=== PATIENT | male | born 1960 | race Caucasian/White ===

== ENCOUNTER 2020-04-30 08:52 | Emergency (ER) | payer MEDICAID, SELFPAY ==
[2020-04-30] VITALS (8 sets, daily range): BP systolic 112–142; BP diastolic 73–99; PULSE 66–86; RESP 10–30; TEMP 36.4; O2SAT 97–99; BMI 25.1
--- NOTE | 2020-04-30 09:06 | DI.US.S_ITS ---
PROCEDURE: US PERIPH VENOUS LOW EXTREM LT INDICATIONS: swelling redness TECHNIQUE: Real-time imaging, as well as color and pulse Doppler interrogation, were performed of the lower extremity deep veins from the inguinal ligament to the popliteal fossa. COMPARISON: None. FINDINGS: The common femoral, femoral and popliteal veins are normally compressible, and free of intraluminal thrombus. Color and pulse Doppler demonstrate normal phasic intraluminal flow. There is normal augmentation response to distal compression maneuver. IMPRESSION: No evidence of DVT in visualized left lower extremity veins. Dictated by: Maurisio Haney M.D. on 04/30/2020 at 9:46 Approved by: Maurisio Haney M.D. on 04/30/2020 at 9:46
--- NOTE | 2020-04-30 09:18 | ED.SKABFB ---
HPI - Skin/Abscess/Foreign Bdy General Chief complaint: Extremity Problem,Nontraumatic Stated complaint: suspected blood clot in leg Time Seen by Provider: 04/30/20 09:00 Source: patient Mode of arrival: Ambulatory Limitations: no limitations History of Present Illness HPI narrative: Patient is a 60-year-old male who presents with 3 days of left lower extremity redness and swelling. He has unfortunately been sitting up stairs in the hospital for the last week while his dyes of breast cancer. She this morning around 4:00 a.m. it will come to the ER for evaluation his leg. He denies any fevers chills sweats or shortness of breath. No prior history of blood clots. He says he has been wearing his boot because that seems to help make his leg and foot feel better. His other leg is swollen. He does not go to doctors and takes no medications. MD complaint: rash Onset (ago): day(s) (3) Location: LLE Severity: moderate Quality: aching Pain Consistency: constant Treatments prior to arrival: none Related Data Previous Rx's Medication Instructions Recorded cephalexin [Keflex] 500 mg PO TID #21 cap 04/30/20 sulfamethoxazole-trimethoprim 1 tab PO BID 7 Days #14 tab 04/30/20 [Bactrim DS] Allergies Allergy/AdvReac Type Severity Reaction Status Date / Time No Known Drug Allergies Allergy Verified 04/30/20 09:55 Review of Systems Review of Systems ROS Unobtainable: All systems reviewed & are unremarkable except as noted in HPI and below Constitutional Constitutional: Denies chills, Denies fever(s), Denies lethargy and Denies weakness Eyes Eyes: Denies change in vision, Denies eye discharge, Denies irritation and Denies loss of vision Cardiovascular Cardiovascular: Denies chest pain, Denies irregular heart rhythm, Denies lightheadedness, Denies palpitations, Denies dyspnea, Denies dyspnea on exertion and Denies orthopnea Respiratory Respiratory: Denies cough, Denies dyspnea, Denies dyspnea on exertion and Denies wheezing Gastrointestinal Gastrointestinal: Denies abdominal pain, Denies change in bowel habits, Denies diarrhea, Denies nausea and Denies vomiting Integumentary/Breasts Skin/Breast: Reports as per HPI, Reports erythema and Reports skin swelling Neurologic Neurologic: Denies loss of vision and Denies weakness Endocrine Endocrine: Denies palpitations Allergic/Immunologic Allergic/Immunologic: Denies wheezing Patient History Social History Smoking Status: Current every day smoker Smoking Status: Current every day smoker alcohol intake frequency: 0-2 drinks per day Substance Use Type: marijuana Exam Initial Vital Signs Initial Vital Signs: Vital Signs Pulse Rate 83 04/30/20 08:59 Blood Pressure 142/99 H 04/30/20 08:59 Pulse Oximetry 99 04/30/20 08:59 GENERAL: Alert 60-year-old male and in no acute distress. HEENT: Head atraumatic,EOMI, pupils reactive, face symmetric, moist mucous membranes CARDIOVASCULAR: Regular rate and rhythm without murmurs, rubs or gallops. RESPIRATORY: Breath sounds equal bilaterally, no wheezes rales or rhonchi. ABDOMEN: Soft, nontender. Normoactive bowel sounds all 4 quadrants. No guarding or rebound. EXTREMITIES: Normal range of motion, no clubbing or edema. Neurovascularly intact NEUROLOGICAL: Alert and oriented x4.Normal gait and speech. Cranial nerves II through XII grossly intact. SKIN: Left lower extremity is swollen and erythematous to mid lower leg. No abscess Course Orders Ordered: ED Orders 04/30/20 09:06 US periph venous low extrem lt Stat Blood Culture Stat 04/30/20 09:08 Complete Blood Count AUTO DIFF Stat Lactate (Lactic Acid) Stat Partial Thromboplastin Time Stat Procalcitonin Stat Prothrombin Time INR Stat 04/30/20 09:59 Comprehensive Metabolic Panel Stat Discontinued Medications Ceftriaxone Sodium/Dextrose (Rocephin) 1 gm in 50 mls @ 100 mls/hr IV NOW ONE Stop: 04/30/20 10:23 Last Infusion: 04/30/20 10:48 Dose: 0 mls/hr Documented by: Admin: 04/30/20 10:13 Dose: 100 mls/hr Documented by: BTONER Ketorolac Tromethamine (Ketorolac 60 Mg/2 Ml Vial) 30 mg IV NOW ONE Stop: 04/30/20 09:55 Last Admin: 04/30/20 10:13 Dose: 30 mg Documented by: BTONER Vital Signs Vital signs: Vital Signs - 8 hr 04/30/20 08:59 04/30/20 09:00 04/30/20 09:31 Temperature 97.6 F Pulse Rate 83 80 70 Pulse Rate [Left Dorsalis Pedis] Respiratory Rate 18 Blood Pressure 142/99 H 112/77 Pulse Oximetry 99 98 99 04/30/20 09:34 04/30/20 09:53 04/30/20 10:00 Temperature Pulse Rate 66 71 Pulse Rate [Left Dorsalis Pedis] 76 Respiratory Rate 10 L 26 H Blood Pressure 127/82 Pulse Oximetry 99 04/30/20 10:10 04/30/20 11:00 Temperature Pulse Rate 86 75 Pulse Rate [Left Dorsalis Pedis] Respiratory Rate 30 H 16 Blood Pressure 137/81 131/73 Pulse Oximetry 97 98 MDM - Skin/Abscess/Foreign Bdy Lab Data Attestation: I reviewed the patient's lab results. Result diagrams: 04/30/20 09:08 04/30/20 09:59 Labs: Lab Results 04/30/20 04/30/20 04/30/20 Range/Units 09:08 09:08 09:08 WBC 9.9 (4.5-11.0) X10^3/uL RBC 4.75 (4.5-5.9) X10^6/uL Hgb 15.2 (13.5-17.5) g/dL Hct 44.4 (41-53) % MCV 93.4 (80-100) fL MCH 31.9 (26-34) PG MCHC 34.2 (30-36) % RDW 13.0 (11.6-14.8) % Plt Count 185 (150-400) X10^3/uL Neut % (Auto) 68.7 (50-75) % Lymph % (Auto) 19.2 L (25-40) % Graham % (Auto) 10.1 (3-14) % Eos % (Auto) 1.1 L (2-4) % Baso % (Auto) 0.9 (0-2) % Neut # (Auto) 6800 (7871-2966) /uL Lymph # (Auto) 1900 (6381-6051) /uL Graham # (Auto) 1000 H (0-900) /uL Eos # (Auto) 100 (0-450) /uL Baso # (Auto) 100 (0-100) /uL PT 14.2 H (10.1-12.7) SECONDS INR 1.2 (0.9-1.3) APTT 35 (26.4-36.2) SECONDS Sodium (137-145) mmol/L Potassium (3.4-5.1) mmol/L Chloride (98-107) mmol/L Carbon Dioxide (22-32) mmol/L BUN (9-20) mg/dL Creatinine (0.66-1.25) mg/dL Estimated GFR (>60) mL/min BUN/Creatinine Ratio (6-22) Glucose (80-110) mg/dL Lactate (0.7-2.1) mmol/L Calcium (8.4-10.2) mg/dL Total Bilirubin (0.2-1.3) mg/dL AST (17-59) IU/L ALT (<50) IU/L Alkaline Phosphatase (38-126) U/L Total Protein (6.3-8.2) g/dL Albumin (3.5-5.0) g/dL Globulin (1.7-4.1) g/dL Albumin/Globulin Ratio (1.0-2.8) Procalcitonin < 0.05 (<0.5) ng/mL 04/30/20 04/30/20 04/30/20 Range/Units 09:08 09:08 09:59 WBC (4.5-11.0) X10^3/uL RBC (4.5-5.9) X10^6/uL Hgb (13.5-17.5) g/dL Hct (41-53) % MCV (80-100) fL MCH (26-34) PG MCHC (30-36) % RDW (11.6-14.8) % Plt Count (150-400) X10^3/uL Neut % (Auto) (50-75) % Lymph % (Auto) (25-40) % Graham % (Auto) (3-14) % Eos % (Auto) (2-4) % Baso % (Auto) (0-2) % Neut # (Auto) (0496-3477) /uL Lymph # (Auto) (6951-4629) /uL Graham # (Auto) (0-900) /uL Eos # (Auto) (0-450) /uL Baso # (Auto) (0-100) /uL PT (10.1-12.7) SECONDS INR (0.9-1.3) APTT Cancelled (26.4-36.2) SECONDS Sodium 133 L (137-145) mmol/L Potassium 4.1 (3.4-5.1) mmol/L Chloride 98 (98-107) mmol/L Carbon Dioxide 33 H (22-32) mmol/L BUN 10 (9-20) mg/dL Creatinine 0.62 L (0.66-1.25) mg/dL Estimated GFR > 60.0 (>60) mL/min BUN/Creatinine Ratio 16.1 (6-22) Glucose 115 H (80-110) mg/dL Lactate 1.5 (0.7-2.1) mmol/L Calcium 9.0 (8.4-10.2) mg/dL Total Bilirubin 0.8 (0.2-1.3) mg/dL AST 70 H (17-59) IU/L ALT 107 H (<50) IU/L Alkaline Phosphatase 104 (38-126) U/L Total Protein 8.2 (6.3-8.2) g/dL Albumin 4.1 (3.5-5.0) g/dL Globulin 4.1 (1.7-4.1) g/dL Albumin/Globulin Ratio 1.0 (1.0-2.8) Procalcitonin (<0.5) ng/mL Imaging Data US - DVT: Radiologist's Impression: PROCEDURE: US PERIPH VENOUS LOW EXTREM LT INDICATIONS: swelling redness TECHNIQUE: Real-time imaging, as well as color and pulse Doppler interrogation, were performed of the lower extremity deep veins from the inguinal ligament to the popliteal fossa. COMPARISON: None. FINDINGS: The common femoral, femoral and popliteal veins are normally compressible, and free of intraluminal thrombus. Color and pulse Doppler demonstrate normal phasic intraluminal flow. There is normal augmentation response to distal compression maneuver. IMPRESSION: No evidence of DVT in visualized left lower extremity veins. Dictated by: Maurisio Haney M.D. on 04/30/2020 at 9:46 MDM Narrative Medical decision making narrative: The patient overall does not appear septic no fever or leukocytosis however he does have significant erythema and swelling of his left lower leg. Negative for DVT, suspect probable cellulitis. At this time he is given 1 dose of Rocephin and will treat as outpatient for cellulitis. I have instructed him on when to return to the ED into monitor the redness and swelling very carefully. Discharge Plan Departure Patient Disposition: Home Clinical Impression: Cellulitis Qualifiers: Site of cellulitis: extremity Site of cellulitis of extremity: lower extremity Laterality: left Qualified Code(s): L03.116 - Cellulitis of left lower limb Instructions: DI for Cellulitis -- Adult Activity Restrictions/Additional Instructions: *You have been diagnosed with cellulitis left leg *What to do: Monitor leg it closely for any worsening swelling or redness. I anticipate the swelling and redness improves after about 2 or 3 days of antibiotic *Continue to take medications as directed Bactrim 1 tablet twice a day for 7 days Keflex 500 mg 3 times a day for 7 days Ibuprofen 600 mg every 6-8 hours if needed for [id number] pain *Follow up with your primary care provider in 2-3 days *Return to ER if you should have increasing redness, swelling, fever, pain, shortness of breath or any new, worsening or concerning symptoms Prescriptions: New sulfamethoxazole-trimethoprim [Bactrim DS] 800-160 mg tablet 1 tab PO BID 7 Days Qty: 14 RF: 0 cephalexin [Keflex] 500 mg capsule 500 mg PO TID Qty: 21 RF: 0
[2020-04-30 09:21] LABS: Add Manual Diff / Slide Review NO; Basophils Absolute Auto 100 /uL (0-100); Basophils Percent Auto 0.9 % (0-2); Eosinophils Absolute Auto 100 /uL (0-450); Eosinophils Percent Auto 1.1 % (2-4); Hematocrit 44.4 % (41-53); Hemoglobin 15.2 g/dL (13.5-17.5); Lymphocytes Absolute Auto 1900 /uL (1100-4500); Lymphocytes Percent Auto 19.2 % (25-40); Mean Corpuscular HGB Conc 34.2 % (30-36); Mean Corpuscular Hemoglobin 31.9 PG (26-34); Mean Corpuscular Volume 93.4 fL (80-100); Monocytes Absolute Auto 1000 /uL (0-900); Monocytes Percent Auto 10.1 % (3-14); Neutrophils Absolute Auto 6800 /uL (1500-7000); Neutrophils Percent Auto 68.7 % (50-75); Platelet Count 185 X10^3/uL (150-400); Red Blood Cell Count 4.75 X10^6/uL (4.5-5.9); White Blood Cell Count 9.9 X10^3/uL (4.5-11.0)
[2020-04-30 09:23] LABS: INR 1.2 (0.9-1.3); Prothrombin Time 14.2 SECONDS (10.1-12.7)
[2020-04-30 09:26] LABS: PTT Partial Thromboplastin Tim 35 SECONDS (26.4-36.2)
[2020-04-30 09:27] LABS: Lactate (Lactic Acid) 1.5 mmol/L (0.7-2.1)
[2020-04-30 09:43] LABS: Procalcitonin < 0.05 ng/mL (<0.5)
[2020-04-30] MEDS: KETOROLAC 60 MG/2 ML VIAL 30 MG IV (10:13)
[2020-04-30] MEDS: CEFTRIAXONE 1 GM/50 ML FROZ.PIGGY IV (10:13)
[2020-04-30 10:24] LABS: Alanine Aminotransferase 107 IU/L (<50); Albumin 4.1 g/dL (3.5-5.0); Alkaline Phosphatase 104 U/L (38-126); Aspartate Aminotransferase 70 IU/L (17-59); BUN Creatinine Ratio 16.1 (6-22); Bilirubin Total 0.8 mg/dL (0.2-1.3); Blood Urea Nitrogen 10 mg/dL (9-20); Carbon Dioxide 33 mmol/L (22-32); Chloride 98 mmol/L (98-107); Estimated Glomerular Filt Rate > 60.0 mL/min (>60); Globulin 4.1 g/dL (1.7-4.1); Glucose 115 mg/dL (80-110); HEMOLYSIS < 15 (0-50); Potassium 4.1 mmol/L (3.4-5.1); Sodium 133 mmol/L (137-145); Total Protein 8.2 g/dL (6.3-8.2)
== END 2020-04-30 11:20 | disposition home or self-care (01) ==
PROVIDERS: Emergency Provider Emergency Medicine
DX: L03.116 Cellulitis of left lower limb (principal); R21 Rash and other nonspecific skin eruption
CPT/HCPCS: 36415; 80053; 83605; 84145; 85025; 85610; 85730; 87040; 93971; 96365; 96375; 99281; 99284; J1885

== ENCOUNTER → 2020-05-10 13:38 | Outpatient (CLI) | payer OTHER, SELFPAY ==
[2020-05-10 16:15] LABS: INR 1.1 (0.9-1.3)
[2020-05-10 16:18] LABS: PTT Partial Thromboplastin Tim 34 SECONDS (26.4-36.2)
[2020-05-10 16:27] LABS: Alanine Aminotransferase 106 IU/L (<50); Alkaline Phosphatase 108 U/L (38-126); Aspartate Aminotransferase 94 IU/L (17-59); BUN Creatinine Ratio 10.4 (6-22); Bilirubin Total 0.4 mg/dL (0.2-1.3); Blood Urea Nitrogen 7 mg/dL (9-20); Calcium 9.2 mg/dL (8.4-10.2); Carbon Dioxide 35 mmol/L (22-32); Chloride 98 mmol/L (98-107); Estimated Glomerular Filt Rate > 60.0 mL/min (>60); Glucose 87 mg/dL (80-110); HEMOLYSIS < 15 (0-50); Potassium 4.9 mmol/L (3.4-5.1); Sodium 136 mmol/L (137-145)
[2020-05-16 11:51] LABS: HCV Genotype 2b
[2020-05-16 12:49] LABS: HCV Genotype 2b (.); HCV LOG 10 6.502 (.)
== END ==
PROVIDERS: PCP Family Medicine; Referring Provider Family Medicine; Visit Provider Family Medicine
DX: B19.20 Unspecified viral hepatitis C without hepatic coma (principal)
CPT/HCPCS: 36415; 80053; 85610; 85730; 87522; 87902

== ENCOUNTER → 2020-06-18 10:12 | Outpatient (CLI) | payer OTHER, MEDICAID, SELFPAY ==
--- NOTE | 2020-06-18 10:13 | DI.US.S_ITS ---
PROCEDURE: US ABDOMEN LIMITED INDICATIONS: HEPATITIS C TECHNIQUE: Real-time focused scanning was performed of the abdomen, with image documentation. COMPARISON: None. FINDINGS: The liver is normal in size and demonstrates normal echogenicity. The liver demonstrates mild heterogeneity, yet without focal lesions. The main portal vein demonstrates normal size and demonstrates normal appearing, hepatopetal flow. No findings of gallstones or sludge are seen. The gallbladder wall is not thickened, measuring 3 mm or less. No specific pericholecystic fluid is seen. The sonographic Berkowitz sign is negative. There is no biliary dilatation, the common bile duct measures 5 mm. No significant pancreatic abnormality is seen on these images. IMPRESSION: Mildly heterogeneous liver, yet without a focal liver abnormality seen. Dictated by: Jameel Molina M.D. on 06/18/2020 at 14:58 Approved by: Jameel Molina M.D. on 06/18/2020 at 14:59
== END ==
PROVIDERS: PCP Family Medicine; Referring Provider Family Medicine; Visit Provider Family Medicine
DX: B19.20 Unspecified viral hepatitis C without hepatic coma (principal)
CPT/HCPCS: 76705

== ENCOUNTER 2021-05-04 09:57 | Emergency (ER) | payer OTHER, MEDICAID, SELFPAY ==
[2021-05-04 10:16] VITALS: BP 129/78; PULSE 73; RESP 18; TEMP 36.6; O2SAT 99; BMI 26.6
--- NOTE | 2021-05-04 10:20 | DI.RAD.S_ITS ---
PROCEDURE: XR KNEE LT 1TO2V INDICATIONS: hit leg with sledge hammer TECHNIQUE: 3 views of the knee were acquired. COMPARISON: None. FINDINGS: Bones: Old healed fracture deformity noted in the distal femoral metaphysis. There is medial compartment moderate joint space narrowing and small marginal osteophyte present. No joint effusion. Soft tissues: No joint effusion. No suspicious soft tissue calcifications. IMPRESSION: No evidence of acute fracture or traumatic injury Old healed distal femoral fracture. Moderate medial compartment osteoarthritis Approved by: Viral Martinez M.D. on 05/04/2021 at 10:07
--- NOTE | 2021-05-04 10:20 | DI.RAD.S_ITS ---
PROCEDURE: XR TIBIA FIBULA LT 2V INDICATIONS: hit leg with sledge hammer TECHNIQUE: 2 views of the tibia and fibula were acquired. COMPARISON: None. FINDINGS: Bones: No fractures or dislocations. No suspicious bony lesions. Old healed probable fracture deformity noted in the distal femoral metaphysis. There is moderate joint space narrowing and small marginal osteophyte noted at the knee. Soft tissues: No suspicious soft tissue calcifications or masses. IMPRESSION: 1. No acute fracture or traumatic injury 2. Moderate knee osteoarthritis and probable distal femoral old fracture deformity Approved by: Viral Martinez M.D. on 05/04/2021 at 10:05
--- NOTE | 2021-05-04 13:05 | ED.LOWEXIN ---
HPI - Extremity Injury (Lower) General Chief Complaint: Extremity Injury, Lower Stated Complaint: lt. leg pain/broken Time Seen by Provider: 05/04/21 13:05 Source: patient Mode of arrival: Ambulatory History of Present Illness HPI Narrative: 61-year-old gentleman hit his left anterior corbin with a sledgehammer accidentally yesterday. Having increasing pain in comes in to see if he has caused any fractures. He is rather abrupt in offers no additional history Related Data Home Medications Medication Instructions Recorded Confirmed No Known Home Medications 05/04/21 05/04/21 Allergies Allergy/AdvReac Type Severity Reaction Status Date / Time No Known Drug Allergies Allergy Verified 05/04/21 10:19 Review of Systems Review of Systems Narrative: Patient was not interested in answering any review of systems questions Patient History Medical History Chronic venous stasis dermatitis Hepatitis C History of smoking at least 1 pack per day for at least 30 years Surgical History H/O left inguinal hernia repair Family History Father Cancer Social History Smoking Status: Current every day smoker Smoking Status: Current every day smoker alcohol intake frequency: 0-2 drinks per day Substance Use Type: marijuana Exam Initial Vital Signs Initial Vital Signs: Vital Signs Temperature 97.9 F 05/04/21 10:16 Pulse Rate 73 05/04/21 10:16 Respiratory Rate 18 05/04/21 10:16 Blood Pressure 129/78 05/04/21 10:16 Pulse Oximetry 99 05/04/21 10:16 General: Alert appropriate in no acute distress Respiratory: Able to speak in full sentences, no obvious respiratory distress Skin: No obvious rashes, warm and dry Neurologic: Grossly intact no obvious asymmetries or abnormalities Psych: appropriate insight and affect, Extremity: There is a minor abrasion and moderate hematoma to the medial proximal tibia area. Knee is stable. Course Orders Ordered: ED Orders 05/04/21 10:20 XR knee LT 1to2V Stat XR tibia fibula LT 2V Stat Vital Signs Vital signs: Vital Signs - 8 hr 05/04/21 10:16 Temperature 97.9 F Pulse Rate 73 Respiratory Rate 18 Blood Pressure 129/78 Pulse Oximetry 99 [facility] - Extremity Injury (Lower) Imaging Data XR tib/fib and Knee: Radiologist's Impression: FINDINGS:? ? Bones:? No fractures or dislocations.? No suspicious bony lesions.? Old healed probable fracture deformity noted in the distal femoral metaphysis.? There is moderate joint space narrowing and small marginal osteophyte noted at the knee. ? Soft tissues:? No suspicious soft tissue calcifications or masses.? ? IMPRESSION:? ? 1. No acute fracture or traumatic injury ? 2. Moderate knee osteoarthritis and probable distal femoral old fracture deformity ? ? Approved by: Viral Martinez M.D. on 05/04/2021 at 10:05? FINDINGS:? ? Bones:? Old healed fracture deformity noted in the distal femoral metaphysis.? There is medial compartment moderate joint space narrowing and small marginal osteophyte present.? No joint effusion. ? Soft tissues:? No joint effusion.? No suspicious soft tissue calcifications.? ? ? IMPRESSION:? ? No evidence of acute fracture or traumatic injury Old healed distal femoral fracture. Moderate medial compartment osteoarthritis ? ? ? Approved by: Viral Martinez M.D. on 05/04/2021 at 10:07? [facility] Narrative Medical decision making narrative: Trauma to the corbin from a sledgehammer. No bony injury. Once I reviewed the x-rays the patient he immediately left the department. Discharge Plan Departure Patient Disposition: Home Clinical Impression: Contusion of left lower leg, initial encounter Activity Restrictions/Additional Instructions: Patient chose to leave the department prior to discharge instructions Prescriptions: No Action No Known Home Medications 0RF Referrals: Aime Vieira MD [Primary Care Provider] -
== END 2021-05-04 13:10 | disposition home or self-care (01) ==
PROVIDERS: Emergency Provider Emergency Medicine; PCP Family Medicine
DX: S80.12XA Contusion of left lower leg, initial encounter (principal); W22.8XXA Striking against or struck by other objects, initial encounter
CPT/HCPCS: 73560; 73590; 99281; 99283

== ENCOUNTER 2022-02-18 13:33 | Emergency (ER) | payer OTHER, MEDICAID, SELFPAY ==
[2022-02-18 13:44] VITALS: BP 134/91; PULSE 73; RESP 15; TEMP 36.4; O2SAT 98; BMI 27.3
== END 2022-02-18 16:35 | disposition left against medical advice (07) ==
PROVIDERS: Emergency Provider Emergency Medicine; PCP Family Medicine
CPT/HCPCS: 99281

== ENCOUNTER 2022-11-10 18:48 | Emergency (ER) | payer OTHER, MEDICAID, SELFPAY ==
--- NOTE | 2022-11-10 18:52 | DI.RAD.S_ITS ---
PROCEDURE: XR ACUTE ABDOMEN SERIES INDICATIONS: Abdominal pain, NO BM TECHNIQUE: One view chest and two views of the abdomen were acquired. COMPARISON: None. FINDINGS: Surgical changes and devices: None. Chest: Lungs are clear. Heart size is normal. No pleural effusions. No pneumoperitoneum. Abdomen: Bowel gas pattern is normal. No suspicious calcifications. Visualized solid organ contours appear normal. Bones: No suspicious bony lesions. IMPRESSION: 1. No evidence of bowel obstruction or gross free air. No significant fecal burden. 2. No acute cardiopulmonary pathology. Dictated by: Maurisio Haney M.D. on 11/10/2022 at 19:40 Approved by: Maurisio Haney M.D. on 11/10/2022 at 19:40
[2022-11-10 19:18] VITALS: BP 100/65; PULSE 105; RESP 20; TEMP 37.7; O2SAT 98; BMI 26.7
[2022-11-10 19:38] LABS: Ictotest Urine Positive (Negative)
[2022-11-10] MEDS: SODIUM CHLORIDE 0.9% 1,000 ML 1000 ML IV (19:38)
[2022-11-10 19:42] LABS: Bacteria Urine Few (2-10); Mucus Urine 1+ (Negative); RBC Urine None Seen (0-5/HPF); Squamous Epithelial Cell Urine 0-1 /HPF (0-5/HPF); WBC Urine 0-1/HPF (0-5/HPF)
[2022-11-10 19:45] LABS: Culture Indicated Urine Specimen Cultured
[2022-11-10 19:58] LABS: Alanine Aminotransferase 36 IU/L (<50); Albumin 4.2 g/dL (3.5-5.0); Alkaline Phosphatase 145 U/L (38-126); Aspartate Aminotransferase 58 IU/L (17-59); BUN Creatinine Ratio 19.5 (6-22); Bilirubin Total 1.5 mg/dL (0.2-1.3); Blood Urea Nitrogen 16 mg/dL (9-20); Carbon Dioxide 22 mmol/L (22-32); Chloride 95 mmol/L (98-107); Estimated Glomerular Filt Rate > 60 mL/min (>60); Globulin 4.1 g/dL (1.7-4.1); Glucose 118 mg/dL (80-110); HEMOLYSIS 17 (0-50); Potassium 4.1 mmol/L (3.4-5.1); Sodium 128 mmol/L (137-145); Total Protein 8.3 g/dL (6.3-8.2)
[2022-11-10 20:03] LABS: Lipase 110 U/L (23-300); Magnesium 1.9 mg/dL (1.6-2.3)
[2022-11-10 20:15] LABS: Hematocrit 45.7 % (41-53); Hemoglobin 16.3 g/dL (13.5-17.5); Mean Corpuscular HGB Conc 35.5 % (30-36); Mean Corpuscular Hemoglobin 31.6 PG (26-34); Mean Corpuscular Volume 88.9 fL (80-100); Platelet Count 90 X10^3/uL (150-400); Red Blood Cell Count 5.14 X10^6/uL (4.5-5.9); White Blood Cell Count 4.5 X10^3/uL (4.5-11.0)
[2022-11-10 20:30] LABS: Adenovirus Not Detected (Not Detect); B. parapertussis Not Detected (Not Detecte); Bordetella pertussis Not Detected (Not Detecte); Chlamydophila pneumoniae Not Detected (Not Detect); Coronavirus 229E Not Detected (Not Detect); Coronavirus HKU1 Not Detected (Not Detect); Coronavirus NL 63 Not Detected (Not Detect); Coronavirus OC43 Not Detected (Not Detect); Human Metapneumovirus Not Detected (Not Detect); Human Rhinovirus/Enterovirus Not Detected (Not Detect); Influenza A Not Detected (Not Detect); Influenza B Not Detected (Not Detect); Mycoplasma pneumoniae Not Detected (Not Detect); Parainfluenza Virus 1 Not Detected (Not Detect); Parainfluenza Virus 2 Not Detected (Not Detect); Parainfluenza Virus 3 Not Detected (Not Detect); Parainfluenza Virus 4 Not Detected (Not Detect); Respiratory Syncytial Virus Not Detected (Not Detect); SARS- CoV-2 Not Detected (Not Detecte)
[2022-11-10 20:31] LABS: Add Manual Diff / Slide Review YES
[2022-11-10 20:36] LABS: Neutrophils Absolute Manual 3060 /uL (3000-5900); Total Cells Counted 100
[2022-11-10 20:41] LABS: Lactate (Lactic Acid) 1.5 mmol/L (0.7-2.1)
[2022-11-10 20:43] LABS: RBC Morphology Normal Morphology
--- NOTE | 2022-11-10 22:26 | ED.GENADULT ---
HPI - General Adult General Chief complaint: Urogenital-Male Stated complaint: sent by [facility]/headache/joints hurt Time Seen by Provider: 11/10/22 18:50 Mode of arrival: Ambulatory Related Data Previous Rx's Medication Instructions Recorded fluticasone propionate 50 2 spray intranasal DAILY #16 grams 03/12/22 mcg/actuation nasal spray,suspension (Flonase Allergy Relief) prednisone 20 mg tablet See Rx Instructions PO DAILY nasal 03/12/22 polyps #11 tabs Allergies Allergy/AdvReac Type Severity Reaction Status Date / Time No Known Drug Allergies Allergy Verified 11/10/22 19:23 Patient History Medical History Chronic venous stasis dermatitis Hepatitis C History of smoking at least 1 pack per day for at least 30 years Surgical History H/O left inguinal hernia repair Family History Father Cancer Social History Smoking Status: Current every day smoker Smoking Status: Current every day smoker alcohol intake frequency: 0-2 drinks per day Substance Use Type: marijuana Exam Initial Vital Signs Initial Vital Signs: Vital Signs Temperature 99.8 F H 11/10/22 19:18 Pulse Rate 105 H 11/10/22 19:18 Respiratory Rate 20 11/10/22 19:18 Blood Pressure 100/65 11/10/22 19:18 Pulse Oximetry 98 11/10/22 19:18 Oxygen Delivery Method Room Air 11/10/22 19:18 Course Orders Ordered: ED Orders 11/10/22 18:52 XR acute abdomen series Stat 11/10/22 18:53 EKG-12 Lead Stat 11/10/22 19:27 Ictotest Urine Stat Urine Culture Stat Urine Microscopic Stat 11/10/22 19:31 Complete Blood Count AUTO DIFF Stat Comprehensive Metabolic Panel Stat Lactate (Lactic Acid) Stat Lipase Stat Magnesium Stat 11/10/22 19:37 Respiratory Panel (Film Array) Stat Discontinued Medications Sodium Chloride (Normal Saline 0.9%) 1,000 mls @ 1,000 mls/hr IV BOLUS ONE Stop: 11/10/22 19:50 Last Infusion: 11/10/22 20:37 Dose: 0 mls/hr Documented By: Admin: 11/10/22 19:38 Dose: 1,000 mls/hr Documented By: ROSA Vital Signs Vital signs: Vital Signs - 8 hr 11/10/22 19:18 Temperature 99.8 F H Pulse Rate 105 H Respiratory Rate 20 Blood Pressure 100/65 Pulse Oximetry 98 Oxygen Delivery Method Room Air Medical Decision Making Lab Data 11/10/22 19:31 11/10/22 19:31 Labs: Lab Results 11/10/22 11/10/22 11/10/22 Range/Units 19:27 19:27 19:31 WBC 4.5 (4.5-11.0) X10^3/uL RBC 5.14 (4.5-5.9) X10^6/uL Hgb 16.3 (13.5-17.5) g/dL Hct 45.7 (41-53) % MCV 88.9 (80-100) fL MCH 31.6 (26-34) PG MCHC 35.5 (30-36) % RDW 14.0 (11.6-14.8) % Plt Count 90 L (150-400) X10^3/uL Neut % (Auto) Not Reportable Lymph % (Auto) Not Reportable [place] % (Auto) Not Reportable Eos % (Auto) Not Reportable Baso % (Auto) Not Reportable Lymph # (Auto) Not Reportable [place] # (Auto) Not Reportable Baso # (Auto) Not Reportable Total Counted 100 Seg Neutrophils % 33.0 L (38-70) % Band Neutrophils % 35.0 H (3-7) % Lymphocytes % (Manual) 23.0 L (25-45) % Atypical Lymphs % 2.0 H ( - 0) % Monocytes % (Manual) 5.0 (2-11) % Metamyelocytes % 1.0 H (-0) % Myelocytes % 1.0 H (-0) % Neutrophils # (Manual) 3060 (4807-9925) /uL RBC Morphology Normal morphology Sodium (137-145) mmol/L Potassium (3.4-5.1) mmol/L Chloride (98-107) mmol/L Carbon Dioxide (22-32) mmol/L BUN (9-20) mg/dL Creatinine (0.66-1.25) mg/dL Estimated GFR (>60) mL/min BUN/Creatinine Ratio (6-22) Glucose (80-110) mg/dL Lactate (0.7-2.1) mmol/L Calcium (8.4-10.2) mg/dL Magnesium (1.6-2.3) mg/dL Total Bilirubin (0.2-1.3) mg/dL AST (17-59) IU/L ALT (<50) IU/L Alkaline Phosphatase (38-126) U/L Total Protein (6.3-8.2) g/dL Albumin (3.5-5.0) g/dL Globulin (1.7-4.1) g/dL Albumin/Globulin Ratio (1.0-2.8) Lipase (23-300) U/L Ur Bilirubin Confirm Positive H (Negative) Urine RBC None seen (0-5/HPF) Urine WBC 0-1/hpf (0-5/HPF) Ur Squamous Epith Cells 0-1 /hpf (0-5/HPF) Urine Bacteria Few (2-10) H (None) Urine Mucus 1+ H (Negative) Ur Culture Indicated? Specimen cultured Chlamy pneumoniae PCR (Not Detect) Adenovirus (PCR) (Not Detect) B. pertussis DNA (PCR) (Not Detecte) B.parapertussis DNA PCR (Not Detecte) Coronavirus OC43 (PCR) (Not Detect) Coronavirus HKU1 (PCR) (Not Detect) Coronavirus 229E (PCR) (Not Detect) SARS-CoV-2 (PCR) (Not Detecte) Coronavirus NL63 (PCR) (Not Detect) Human Metapneumovir PCR (Not Detect) Influenza Type A (PCR) (Not Detect) Influenza Type B (PCR) (Not Detect) M. pneumoniae (PCR) (Not Detect) Parainfluenza 1 (PCR) (Not Detect) Parainfluenza 2 (PCR) (Not Detect) Parainfluenza 3 (PCR) (Not Detect) Parainfluenza 4 (PCR) (Not Detect) RSV (PCR) (Not Detect) Entero/Rhino (PCR) (Not Detect) 11/10/22 11/10/22 11/10/22 Range/Units 19:31 19:31 19:31 WBC (4.5-11.0) X10^3/uL RBC (4.5-5.9) X10^6/uL Hgb (13.5-17.5) g/dL Hct (41-53) % MCV (80-100) fL MCH (26-34) PG MCHC (30-36) % RDW (11.6-14.8) % Plt Count (150-400) X10^3/uL Neut % (Auto) Lymph % (Auto) [place] % (Auto) Eos % (Auto) Baso % (Auto) Lymph # (Auto) [place] # (Auto) Baso # (Auto) Total Counted Seg Neutrophils % (38-70) % Band Neutrophils % (3-7) % Lymphocytes % (Manual) (25-45) % Atypical Lymphs % ( - 0) % Monocytes % (Manual) (2-11) % Metamyelocytes % (-0) % Myelocytes % (-0) % Neutrophils # (Manual) (4543-2327) /uL RBC Morphology Sodium 128 L (137-145) mmol/L Potassium 4.1 (3.4-5.1) mmol/L Chloride 95 L (98-107) mmol/L Carbon Dioxide 22 (22-32) mmol/L BUN 16 (9-20) mg/dL Creatinine 0.82 (0.66-1.25) mg/dL Estimated GFR > 60 (>60) mL/min BUN/Creatinine Ratio 19.5 (6-22) Glucose 118 H (80-110) mg/dL Lactate 1.5 (0.7-2.1) mmol/L Calcium 9.0 (8.4-10.2) mg/dL Magnesium 1.9 (1.6-2.3) mg/dL Total Bilirubin 1.5 H (0.2-1.3) mg/dL AST 58 (17-59) IU/L ALT 36 (<50) IU/L Alkaline Phosphatase 145 H (38-126) U/L Total Protein 8.3 H (6.3-8.2) g/dL Albumin 4.2 (3.5-5.0) g/dL Globulin 4.1 (1.7-4.1) g/dL Albumin/Globulin Ratio 1.0 (1.0-2.8) Lipase 110 (23-300) U/L Ur Bilirubin Confirm (Negative) Urine RBC (0-5/HPF) Urine WBC (0-5/HPF) Ur Squamous Epith Cells (0-5/HPF) Urine Bacteria (None) Urine Mucus (Negative) Ur Culture Indicated? Chlamy pneumoniae PCR (Not Detect) Adenovirus (PCR) (Not Detect) B. pertussis DNA (PCR) (Not Detecte) B.parapertussis DNA PCR (Not Detecte) Coronavirus OC43 (PCR) (Not Detect) Coronavirus HKU1 (PCR) (Not Detect) Coronavirus 229E (PCR) (Not Detect) SARS-CoV-2 (PCR) (Not Detecte) Coronavirus NL63 (PCR) (Not Detect) Human Metapneumovir PCR (Not Detect) Influenza Type A (PCR) (Not Detect) Influenza Type B (PCR) (Not Detect) M. pneumoniae (PCR) (Not Detect) Parainfluenza 1 (PCR) (Not Detect) Parainfluenza 2 (PCR) (Not Detect) Parainfluenza 3 (PCR) (Not Detect) Parainfluenza 4 (PCR) (Not Detect) RSV (PCR) (Not Detect) Entero/Rhino (PCR) (Not Detect) 11/10/22 Range/Units 19:37 WBC (4.5-11.0) X10^3/uL RBC (4.5-5.9) X10^6/uL Hgb (13.5-17.5) g/dL Hct (41-53) % MCV (80-100) fL MCH (26-34) PG MCHC (30-36) % RDW (11.6-14.8) % Plt Count (150-400) X10^3/uL Neut % (Auto) Lymph % (Auto) [place] % (Auto) Eos % (Auto) Baso % (Auto) Lymph # (Auto) [place] # (Auto) Baso # (Auto) Total Counted Seg Neutrophils % (38-70) % Band Neutrophils % (3-7) % Lymphocytes % (Manual) (25-45) % Atypical Lymphs % ( - 0) % Monocytes % (Manual) (2-11) % Metamyelocytes % (-0) % Myelocytes % (-0) % Neutrophils # (Manual) (5724-3127) /uL RBC Morphology Sodium (137-145) mmol/L Potassium (3.4-5.1) mmol/L Chloride (98-107) mmol/L Carbon Dioxide (22-32) mmol/L BUN (9-20) mg/dL Creatinine (0.66-1.25) mg/dL Estimated GFR (>60) mL/min BUN/Creatinine Ratio (6-22) Glucose (80-110) mg/dL Lactate (0.7-2.1) mmol/L Calcium (8.4-10.2) mg/dL Magnesium (1.6-2.3) mg/dL Total Bilirubin (0.2-1.3) mg/dL AST (17-59) IU/L ALT (<50) IU/L Alkaline Phosphatase (38-126) U/L Total Protein (6.3-8.2) g/dL Albumin (3.5-5.0) g/dL Globulin (1.7-4.1) g/dL Albumin/Globulin Ratio (1.0-2.8) Lipase (23-300) U/L Ur Bilirubin Confirm (Negative) Urine RBC (0-5/HPF) Urine WBC (0-5/HPF) Ur Squamous Epith Cells (0-5/HPF) Urine Bacteria (None) Urine Mucus (Negative) Ur Culture Indicated? Chlamy pneumoniae PCR Not detected (Not Detect) Adenovirus (PCR) Not detected (Not Detect) B. pertussis DNA (PCR) Not detected (Not Detecte) B.parapertussis DNA PCR Not detected (Not Detecte) Coronavirus OC43 (PCR) Not detected (Not Detect) Coronavirus HKU1 (PCR) Not detected (Not Detect) Coronavirus 229E (PCR) Not detected (Not Detect) SARS-CoV-2 (PCR) Not detected (Not Detecte) Coronavirus NL63 (PCR) Not detected (Not Detect) Human Metapneumovir PCR Not detected (Not Detect) Influenza Type A (PCR) Not detected (Not Detect) Influenza Type B (PCR) Not detected (Not Detect) M. pneumoniae (PCR) Not detected (Not Detect) Parainfluenza 1 (PCR) Not detected (Not Detect) Parainfluenza 2 (PCR) Not detected (Not Detect) Parainfluenza 3 (PCR) Not detected (Not Detect) Parainfluenza 4 (PCR) Not detected (Not Detect) RSV (PCR) Not detected (Not Detect) Entero/Rhino (PCR) Not detected (Not Detect) Urine Dip Bedside Urine Glucose Negative Bedside Urine Bilirubin + 1 Bedside Urine Ketone ++ 40 Urine Specific George 1.020 Bedside Urine Occult Blood - Negative Bedside Urine pH 6.0 Bedside Urine Protein + 30 Bedside Urine Urobilinogen 2+ 4mg Bedside Urine Nitrite - Negative Bedside Urine Leukocytes +/- 15 Esterase Point of care testing: Urine Dip Bedside Urine Glucose Negative Bedside Urine Bilirubin + 1 Bedside Urine Ketone ++ 40 Urine Specific George 1.020 Bedside Urine Occult Blood - Negative Bedside Urine pH 6.0 Bedside Urine Protein + 30 Bedside Urine Urobilinogen 2+ 4mg Bedside Urine Nitrite - Negative Bedside Urine Leukocytes +/- 15 Esterase Discharge Plan Departure Prescriptions: No Action prednisone 20 mg tablet See Rx Instructions PO DAILY Qty: 11 0RF Rx Instructions: 20 mg daily x 7 days, then 10 mg daily x 7 days, then stop orally daily; fluticasone propionate [Flonase Allergy Relief] 50 mcg/actuation spray,suspension 2 spray intranasal DAILY Qty: 16 5RF Rx Instructions: administer into each nostril Referrals: Aime Vieira MD [Primary Care Provider] -
== END 2022-11-10 22:49 | disposition left against medical advice (07) ==
PROVIDERS: Emergency Provider Emergency Medicine; PCP Family Medicine
DX: R51.9 Headache, unspecified (principal); R33.9 Retention of urine, unspecified; M25.50 Pain in unspecified joint; R10.9 Unspecified abdominal pain
CPT/HCPCS: 36415; 51798; 74022; 80053; 81003; 81015; 83605; 83690; 83735; 85007; 85025; 87086; 87633; 99284

== ENCOUNTER → 2022-11-20 08:24 | Outpatient (CLI) | payer OTHER, MEDICAID, SELFPAY ==
[2022-11-20 09:13] LABS: Add Manual Diff / Slide Review YES; Hematocrit 39.6 % (41-53); Hemoglobin 14.1 g/dL (13.5-17.5); Mean Corpuscular HGB Conc 35.6 % (30-36); Mean Corpuscular Hemoglobin 31.6 PG (26-34); Mean Corpuscular Volume 88.8 fL (80-100); Platelet Count 249 X10^3/uL (150-400); Red Blood Cell Count 4.46 X10^6/uL (4.5-5.9); Red Cell Distribution Width 13.8 % (11.6-14.8); White Blood Cell Count 7.5 X10^3/uL (4.5-11.0)
--- NOTE | 2022-11-20 09:19 | DI.RAD.S_ITS ---
PROCEDURE: XR FOOT LT MIN 3V INDICATIONS: left foot pain TECHNIQUE: 3 views of the foot were acquired. COMPARISON: None. FINDINGS: Bones: No fractures or dislocations. No suspicious bony lesions. Soft tissues: No tibiotalar joint effusion. Achilles tendon appears normal. IMPRESSION: No definite radiographic abnormality. If pain persists with conservative management consider cross-sectional imaging with MRI or CT. Dictated by: Clayton Gates M.D. on 11/20/2022 at 11:43 Approved by: Clayton Gates M.D. on 11/20/2022 at 11:47
[2022-11-20 09:24] LABS: C-Reactive Protein Quant 4.4 mg/dL (<1.0); Uric Acid 4.5 mg/dL (3.5-8.5)
[2022-11-20 09:34] LABS: Erythrocyte Sedimentation Rate 30 MM/HR (0-15)
[2022-11-20 09:39] LABS: Neutrophils Absolute Manual 2625 /uL (3000-5900); Total Cells Counted 100
[2022-11-20 09:40] LABS: Platelet Estimate Adequate on smear; RBC Morphology Normal Morphology; Toxic Vacuolation Present
[2022-11-20 17:07] LABS: Hep C Virus Ab w/Reflex Quant REACTIVE s/c (NEGATIVE)
[2022-11-20 19:05] LABS: Alanine Aminotransferase 34 IU/L (<50); Albumin 3.8 g/dL (3.5-5.0); Alkaline Phosphatase 157 U/L (38-126); Aspartate Aminotransferase 42 IU/L (17-59); BUN Creatinine Ratio 12.5 (6-22); Blood Urea Nitrogen 10 mg/dL (9-20); Calcium 8.8 mg/dL (8.4-10.2); Carbon Dioxide 27 mmol/L (22-32); Chloride 97 mmol/L (98-107); Estimated Glomerular Filt Rate > 60 mL/min (>60); Glucose 107 mg/dL (80-110); HEMOLYSIS < 15 (0-50); Potassium 4.5 mmol/L (3.4-5.1); Sodium 131 mmol/L (137-145); Total Protein 7.8 g/dL (6.3-8.2)
[2022-11-22 21:51] LABS: CCP Antibodies IgG/IgA 4 units (0-19)
== END ==
PROVIDERS: PCP Family Medicine; Referring Provider Family Medicine; Visit Provider Family Medicine
DX: M79.672 Pain in left foot (principal); M79.89 Other specified soft tissue disorders; B19.20 Unspecified viral hepatitis C without hepatic coma; Z79.899 Other long term (current) drug therapy
CPT/HCPCS: 36415; 73630; 80053; 84550; 85007; 85025; 85651; 86140; 86200; 86430; 86803; 87522

== ENCOUNTER → 2022-12-17 15:09 | Outpatient (CLI) | payer OTHER, MEDICAID, SELFPAY ==
--- NOTE | 2022-12-17 15:10 | DI.CT.S_ITS ---
PROCEDURE: CT LUNG LOW DOSE SCREENING INDICATIONS: 30+ pack smoking hx TECHNIQUE: Noncontrast 2.0-2.5 mm thick sections acquired from the pulmonary apices to the posterior costophrenic angles. 7 mm thick axial MIP, and 5 mm coronal and sagittal reformats were then acquired. A low radiation dose technique was utilized. COMPARISON: None. FINDINGS: Image quality: Diagnostic, given the low radiation dose technique. Lungs and pleura: Confluent centrilobular emphysema and substantial paraseptal emphysema at the lung apices. Diffuse bronchial thickening. No suspicious pulmonary nodules. Mediastinum: Heart size is normal. No pericardial effusion. No mediastinal adenopathy by size criteria. Thoracic aorta and central pulmonary arteries are normal in size. Esophagus is normal in caliber. No hiatal hernia. Bones and chest wall: No suspicious bony lesions. No vertebral body compression fractures. No axillary or supraclavicular adenopathy by size criteria. Thyroid gland is unremarkable. Abdomen: Visualized upper abdomen solid organs and bowel loops appear normal in the absence of contrast. IMPRESSION: No suspicious pulmonary nodules. LUNG-RADS 1; continued annual follow-up if eligible. Dictated by: Vito Keene M.D. on 12/17/2022 at 16:09 Approved by: Vito Keene M.D. on 12/17/2022 at 16:16
== END ==
PROVIDERS: PCP Family Medicine; Referring Provider Family Medicine; Visit Provider Family Medicine
DX: Z12.2 Encounter for screening for malignant neoplasm of respiratory organs (principal); Z87.891 Personal history of nicotine dependence
CPT/HCPCS: 71271

== ENCOUNTER 2023-03-19 13:51 | Day surgery (SDC) | payer OTHER, MEDICAID, SELFPAY ==
--- NOTE | 2023-03-19 | PATH_ITS ---
[facility] Accession Number: [id number] No. of containers..02 Tissue . 01 Material submitted: . PART A: colon - TRANSVERSE POLYP PART B: colon - DESCENDING POLYP . 01 Diagnosis: A. Transverse Colon, Biopsy: Tubular adenoma. Negative for high-grade dysplasia and malignancy. . B. Descending Colon, Biopsy: Mucoinflammatory material only. MRV 03/27/2023 1409 Local . 01 Electronically signed: . Belle Adair MD, Pathologist NPI- [id number] . 01 Gross description: . Part A: TRANSVERSE POLYP: Received in formalin is 1 fragment(s) of scanlon, soft tissue measuring 0.4 x 0.3 x 0.3 cm submitted entirely in 1 cassette(s) Part B: DESCENDING POLYP: Received in formalin is 1 fragment(s) of scanlon, soft tissue measuring 0.3 x 0.1 x 0.1 cm submitted entirely in 1 cassette(s) /JAMAAL 03/20/2023 2228 Local . 01 Pathologist provided ICD-10: D12.6 . 01 CPT . 826380, 137796 Specimen Comment: A courtesy copy of this report has been sent to [phone] Performed at: 01 [facility] [address] [place] [address], [place], [place] [id number] MD Tomas Ho MD Phone: [phone]
[2023-03-19 15:01] VITALS: BP 151/107; PULSE 74; RESP 16; TEMP 36.7; O2SAT 100; BMI 26.6
[2023-03-19] MEDS: LACTATED RINGERS 1,000 ML 150 ML IV (15:22)
--- NOTE | 2023-03-19 15:23 | P.HP_ITS ---
History of Present Illness History of Present Illness Date Patient Seen: 03/19/23 Time Patient Seen: 15:23 Chief complaint: SDC Narrative: Jones is in the 63-year-old man who is here for colonoscopy. He has never had 1 before. No known family history of colon cancer. [facility] Medical History (Updated 03/19/23 @ 15:24 by Jose E Holman MD) Varicose veins of bilateral lower extremities with pain History of smoking at least 1 pack per day for at least 30 years Hepatitis C Chronic venous stasis dermatitis Surgical History H/O left inguinal hernia repair Family History Father Cancer Social History household members: none Smoking Status: Current every day smoker alcohol intake: current Meds Home Medications and Allergies Home Medications Medication Instructions Recorded Confirmed Type No Known Home Medications 03/19/23 03/19/23 History Allergies Allergy/AdvReac Type Severity Reaction Status Date / Time Fish Containing Products Allergy Severe Anaphylaxis Verified 03/19/23 15:23 Exam Vital Signs (past 8 hours): - 03/19/23 15:01 Temperature 98.1 F Pulse Rate 74 Respiratory Rate 16 Blood Pressure 151/107 H Pulse Oximetry 100 Oxygen Delivery Method Room Air Oxygen Delivery Method Room Air Const General: No acute distress Resp Effort & Inspection: normal respiratory effort Assessment & Plan Assessment and plan (1) Colon cancer screening: Status: Acute Plan We reviewed the risks and benefits of colonoscopy for colon cancer screening and he would like to proceed.
--- NOTE | 2023-03-19 17:16 | PM.OP.COLON ---
Operative Date/Time/Diagnoses Date of procedure: 03/19/23 Time of procedure: 17:16 Pre-op diagnosis: Colon cancer screening Post-op diagnosis: same Procedure & Clinicians Study performed: Colonoscopy Same procedure as scheduled: Yes Surgeon: Jose E Holman Procedure Notes Procedure in detail: Surgeon: Jose E Holman MD Anesthesia: Yung Cedillo CRNA Procedure: The patient was brought to the endoscopy suite, placed in left lateral decubitus position. The patient was connected to monitoring devices. A time-out was performed. Sedation was administered. Once the patient was adequately sedated, a digital rectal exam was performed and was normal. The scope was then inserted and advanced to the cecum where the appendiceal orifice was identified and photographed. The scope was then slowly withdrawn over greater than 6 minutes. The mucosa was thoroughly inspected. There was a 5 mm polyp in the transverse colon removed with a cold snare. There was a 5 mm polyp in the descending colon removed with a cold snare. The sigmoid colon was somewhat edematous and the lumen was narrow. The scope was retroflexed in the rectum. Internal hemorrhoids were noted. No other abnormalities were seen. The scope was straightened and removed. The patient was awakened and brought to recovery. Scope withdrawal time: 12 minutes Sedation time: 29 minutes EBL: 3 mL Findings: 5 mm polyp in the transverse colon, 5 mm polyp in the descending colon, narrow sigmoid colon and internal hemorrhoids Post-procedure Disposition: PACU
[2023-03-19 17:19] VITALS: BP 120/71; PULSE 70; RESP 18; TEMP 36.7; O2SAT 98
[2023-03-19 17:25] VITALS: BP 132/91; PULSE 92; RESP 22; TEMP 36.7; O2SAT 99
[2023-03-19 17:34] VITALS: BP 128/97; PULSE 80; RESP 18; TEMP 36.7; O2SAT 98
== END 2023-03-19 17:55 | disposition home or self-care (01) ==
PROVIDERS: PCP Family Medicine; Referring Provider Surgery; Visit Provider Surgery
PROC: 0DJD8ZZ Inspection of Lower Intestinal Tract, Via Natural or Artificial Opening Endoscopic (ICD-10-PCS; CPT 45378; principal; 2023-03-19 15:15)
DX: Z12.11 Encounter for screening for malignant neoplasm of colon (principal); K64.8 Other hemorrhoids; D12.3 Benign neoplasm of transverse colon
CPT/HCPCS: 45385

== ENCOUNTER → 2024-04-07 15:06 | Outpatient (CLI) | payer OTHER, SELFPAY ==
[2024-04-07 17:48] LABS: Add Manual Diff / Slide Review NO; Basophils Absolute Auto 100 /uL (0-100); Basophils Percent Auto 0.7 % (0-2); Eosinophils Absolute Auto 200 /uL (0-450); Hematocrit 44.3 % (41-53); Hemoglobin 15.1 g/dL (13.5-17.5); Lymphocytes Absolute Auto 2000 /uL (1100-4500); Lymphocytes Percent Auto 20.1 % (25-40); Mean Corpuscular Hemoglobin 31.1 PG (26-34); Mean Corpuscular Volume 91.4 fL (80-100); Monocytes Absolute Auto 700 /uL (0-900); Monocytes Percent Auto 7.1 % (3-14); Neutrophils Absolute Auto 7000 /uL (1500-7000); Neutrophils Percent Auto 70.1 % (50-75); Platelet Count 294 X10^3/uL (150-400); Red Blood Cell Count 4.85 X10^6/uL (4.5-5.9); Red Cell Distribution Width 13.1 % (11.6-14.8); White Blood Cell Count 9.9 X10^3/uL (4.5-11.0)
[2024-04-07 18:07] LABS: Alanine Aminotransferase 27 IU/L (<50); Albumin 4.3 g/dL (3.5-5.0); Albumin Globulin Ratio 1.2 (1.0-2.8); Alkaline Phosphatase 109 U/L (38-126); Aspartate Aminotransferase 29 IU/L (17-59); BUN Creatinine Ratio 14.9 (6-22); Bilirubin Total 0.4 mg/dL (0.2-1.3); Blood Urea Nitrogen 14 mg/dL (9-20); Calcium 9.5 mg/dL (8.4-10.2); Carbon Dioxide 29 mmol/L (22-32); Chloride 102 mmol/L (98-107); Cholesterol 219 mg/dL (140-199); Estimated Glomerular Filt Rate > 60 mL/min (>60); Globulin 3.5 g/dL (1.7-4.1); Glucose 90 mg/dL (80-110); HDL Cholesterol 46 mg/dL (40-60); HEMOLYSIS < 15 (0-50); LDL Cholesterol Calculated 138 mg/dL (<100); Potassium 4.3 mmol/L (3.4-5.1); Sodium 139 mmol/L (137-145); Total Protein 7.8 g/dL (6.3-8.2); Triglycerides 175 mg/dL (35-150)
[2024-04-07 18:36] LABS: Prostate Specific Antigen Scrn 4.29 ng/mL (0.1-4.0)
[2024-04-07 19:00] LABS: TSH w/ Reflex to FT4 2.43 uIU/mL (0.47-4.68)
[2024-04-09 03:09] LABS: Apolipoprotein B 111 mg/dL (<90)
== END ==
PROVIDERS: PCP Family Medicine; Referring Provider Family Medicine; Visit Provider Family Medicine
DX: Z12.5 Encounter for screening for malignant neoplasm of prostate (principal); B19.20 Unspecified viral hepatitis C without hepatic coma; M06.9 Rheumatoid arthritis, unspecified; Z00.00 Encounter for general adult medical examination without abnormal findings; Z87.891 Personal history of nicotine dependence
CPT/HCPCS: 80053; 80061; 82172; 84443; 85025; G0103

== ENCOUNTER → 2024-04-13 13:24 | Outpatient (CLI) | payer OTHER, SELFPAY ==
--- NOTE | 2024-04-13 13:26 | DI.US.S_ITS ---
PROCEDURE: US ABD AORTA ANEURYSM SCREEN INDICATIONS: smoking hx TECHNIQUE: Real-time scanning was performed of the aorta and proximal common iliac arteries, with image documentation. COMPARISON: None. FINDINGS: Aorta: Abdominal aorta is normal in caliber throughout its length. Iliacs: Proximal common iliac arteries are normal in caliber. IMPRESSION: No evidence of abdominal aortic aneurysm Dictated by: David Thomason M.D. on 04/13/2024 at 15:36 Approved by: David Thomason M.D. on 04/13/2024 at 15:39
--- NOTE | 2024-04-13 13:38 | DI.CT.S_ITS ---
PROCEDURE: CT LUNG LOW DOSE SCREENING INDICATIONS: Current smoker TECHNIQUE: Noncontrast 2.0-2.5 mm thick sections acquired from the pulmonary apices to the posterior costophrenic angles. 7 mm thick axial MIP, and 5 mm coronal and sagittal reformats were then acquired. For radiation dose reduction, the following was used: automated exposure control, adjustment of mA and/or kV according to patient size. COMPARISON: [facility], CT, CT LUNG LOW DOSE SCREENING, 12/17/2022, 15:19. FINDINGS: Image quality: Diagnostic. Lower Neck: No enlarged lymph nodes. Thyroid: No thyroid nodules which require sonographic follow up, per consensus guidelines. Axillae: No enlarged lymph nodes. Chest Wall: Unremarkable. Bones: No suspicious osseous lesion. Lungs and Pleura: No pneumothorax or pleural effusions. No consolidation or suspicious nodules. Moderate emphysematous change. Heart: Heart size is normal. No pericardial effusion. Thoracic Vessels: The aorta and pulmonary arteries demonstrate normal size. Mediastinum and Patrizia: No enlarged lymph nodes. Esophagus: No wall thickening. No hiatal hernia. Upper Abdomen: Liver appears somewhat coarsened. IMPRESSION: No suspicious pulmonary nodules. LUNG-RADS 1; continued annual screening, if eligible. Clinically Significant Non-pulmonary Findings: None. Liver appears coarsened. This raises the possibility of cirrhosis. Dictated by: Tyrone Hampton M.D. on 04/14/2024 at 0:34 Approved by: Tyrone Hampton M.D. on 04/14/2024 at 0:42
== END ==
LOC: CT 13:25
PROVIDERS: PCP Family Medicine; Referring Provider Family Medicine; Visit Provider Family Medicine
DX: F17.210 Nicotine dependence, cigarettes, uncomplicated (principal); Z12.2 Encounter for screening for malignant neoplasm of respiratory organs; Z13.6 Encounter for screening for cardiovascular disorders; D72.89 Other specified disorders of white blood cells
CPT/HCPCS: 36415; 71271; 76706; 80053; 83540; 83550; 83615; 83883; 84155; 84165; 85025; 85045; 85651; 86140

== ENCOUNTER → 2024-04-13 13:27 | Outpatient (CLI) | payer OTHER, SELFPAY ==
[2024-04-13 15:08] LABS: HEMOLYSIS < 15 (0-50); Iron 109 ug/dL (49-181)
[2024-04-13 15:11] LABS: Alanine Aminotransferase 23 IU/L (<50); Albumin 4.4 g/dL (3.5-5.0); Albumin Globulin Ratio 1.2 (1.0-2.8); Alkaline Phosphatase 104 U/L (38-126); Aspartate Aminotransferase 28 IU/L (17-59); BUN Creatinine Ratio 4.5 (6-22); Bilirubin Total 0.6 mg/dL (0.2-1.3); Blood Urea Nitrogen 4 mg/dL (9-20); C-Reactive Protein Quant 1.2 mg/dL (<1.0); Calcium 9.4 mg/dL (8.4-10.2); Carbon Dioxide 31 mmol/L (22-32); Chloride 102 mmol/L (98-107); Estimated Glomerular Filt Rate > 60 mL/min (>60); Globulin 3.7 g/dL (1.7-4.1); Glucose 85 mg/dL (80-110); HEMOLYSIS < 15 (0-50); Lactate Dehydrogenase 151 U/L (120-246); Potassium 4.4 mmol/L (3.4-5.1); Sodium 137 mmol/L (137-145); Total Protein 8.1 g/dL (6.3-8.2)
[2024-04-13 15:19] LABS: Percent Iron Saturation 41 % (20-50); Total Iron Binding Capacity 268 ug/dL (261-462); Transferrin 240 mg/dL (206-381)
[2024-04-13 15:45] LABS: Erythrocyte Sedimentation Rate 22 MM/HR (0-15)
[2024-04-13 23:38] LABS: Hemoglobin 15.5 g/dL (13.5-17.5); Monocytes Absolute Auto 500 /uL (0-900); Platelet Count 264 X10^3/uL (150-400); Red Cell Distribution Width 13.4 % (11.6-14.8)
[2024-04-13 23:45] LABS: Add Manual Diff / Slide Review NO; Basophils Absolute Auto 100 /uL (0-100); Basophils Percent Auto 1.2 % (0-2); Eosinophils Absolute Auto 200 /uL (0-450); Eosinophils Percent Auto 3.4 % (2-4); Hematocrit 45.3 % (41-53); Lymphocytes Absolute Auto 2200 /uL (1100-4500); Lymphocytes Percent Auto 34.3 % (25-40); Mean Corpuscular HGB Conc 34.2 % (30-36); Mean Corpuscular Volume 90.6 fL (80-100); Monocytes Percent Auto 8.5 % (3-14); Neutrophils Absolute Auto 3400 /uL (1500-7000); Neutrophils Percent Auto 52.6 % (50-75); White Blood Cell Count 6.4 X10^3/uL (4.5-11.0)
[2024-04-14 23:07] LABS: Free Kappa Lt Chains, Serum 35.5 mg/L (3.3-19.4); Free Lambda Lt Chains,Serum 23.5 mg/L (5.7-26.3)
[2024-04-15 14:09] LABS: Albumin 3.5 g/dL (2.9-4.4); Alpha-1-Globulin 0.3 g/dL (0.0-0.4); Alpha-2-Globulin 0.8 g/dL (0.4-1.0); Gamma Globulin 1.7 g/dL (0.4-1.8); Globulin Total 3.8 g/dL (2.2-3.9); Protein, Total 7.3 g/dL (6.0-8.5)
== END ==
LOC: LAB 13:28
PROVIDERS: PCP Family Medicine; Referring Provider Student in an Organized Health Care Education/Training Program; Visit Provider Student in an Organized Health Care Education/Training Program
DX: D72.89 Other specified disorders of white blood cells (principal)
CPT/HCPCS: 36415; 80053; 83540; 83550; 83615; 83883; 84155; 84165; 85025; 85045; 85651; 86140

== ENCOUNTER → 2024-05-24 09:35 | Outpatient (CLI) | payer OTHER, SELFPAY ==
--- NOTE | 2024-05-24 09:36 | DI.US.S_ITS ---
PROCEDURE: US ABDOMEN LIMITED INDICATIONS: COARSE LIVER FOLLOW UP FROM CT 04/13/24 TECHNIQUE: Real-time scanning was performed of the abdominal and retroperitoneal organs, with image documentation. COMPARISON: [facility], CT, CT LUNG LOW DOSE SCREENING, 04/13/2024, 13:27. [facility], US, US ABDOMEN LIMITED, 06/18/2020, 11:15. FINDINGS: Liver: Liver is normal in size measuring 12.9 centimeters. Liver is coarsened in echotexture with a lobular surface, most consistent with cirrhosis. Mass in the right hepatic lobe measuring 1.8 x 2.3 x 2.5 centimeters with vascularity. Echogenic lesion in the right hepatic lobe measuring 8 x 7 x 4 millimeters without vascularity. Just inferior to the right hepatic lobe and superior to the right kidney, there is a nodule measuring 0.9 x 1.4 x 0.8 centimeters. Gallbladder: Multiple mobile gallstones. No wall thickening. No pericholecystic edema. Negative sonographic Berkowitz's sign. Biliary ducts: Intrahepatic bile ducts are non-dilated. Extrahepatic bile duct caliber measures 5.2 mm. Normal is 6-7 mm or less in diameter, or 10 mm or less post-cholecystectomy. Pancreas: Tail is not well seen. Mild prominence of the pancreatic duct measuring 2.7 millimeters. Miscellaneous: No free abdominal fluid. IMPRESSION: 1. Coarsened echotexture to the liver with a lobular surface, most consistent with cirrhosis. 2. There is a mass within the right hepatic lobe measuring 2.5 centimeters concerning for hepatocellular carcinoma. Recommend hepatic protocol MRI or CT for further evaluation. 3. Additional echogenic lesion in the right hepatic lobe measuring 8 millimeters as well as a nodule between the inferior right hepatic lobe and superior to the right kidney measuring 1.4 centimeters. Can be further evaluated by MRI or CT. 4. Cholelithiasis without sonographic evidence of acute cholecystitis. Dictated by: Dandy Pringle M.D. on 05/24/2024 at 13:58 Approved by: Dandy Pringle M.D. on 05/24/2024 at 14:03
== END ==
LOC: US 09:36
PROVIDERS: PCP Family Medicine; Referring Provider Family Medicine; Visit Provider Family Medicine
DX: K76.9 Liver disease, unspecified (principal); K80.20 Calculus of gallbladder without cholecystitis without obstruction; R93.2 Abnormal findings on diagnostic imaging of liver and biliary tract
CPT/HCPCS: 76705

== ENCOUNTER → 2024-05-27 11:45 | Outpatient (CLI) | payer OTHER, SELFPAY ==
--- NOTE | 2024-05-27 11:46 | DI.MRI.S_ITS ---
PROCEDURE: MR ABDOMEN LIVER PROTOCOL INDICATIONS: rt hepatic lobe mass and echogenic lesion and nodule TECHNIQUE: Coronal HASTE, axial 2D FLASH in- and [id number]; axial breath-hold T2 FSE. Dynamic axial VIBE during the administration of contrast; post-contrast coronal VIBE or 2D FLASH with fat saturation from the hepatic dome to the iliac crests. Optional diffusion weighted imaging and ADC may be performed. COMPARISON: [facility], US, US ABDOMEN LIMITED, 06/18/2020, 11:15. [facility], CT, CT LUNG LOW DOSE SCREENING, 04/13/2024, 13:27. [facility], US, US ABDOMEN LIMITED, 05/24/2024, 9:51. FINDINGS: Image quality: Diagnostic. Lung bases: Unremarkable. Liver: Cirrhotic liver morphology. Liver lesions as follows: Lesion 1: Size: 1.9 x 2.4 cm. Location: Segment 6. (series 27, image 44) . Arterial enhancement: Present. Non-peripheral washout: Present. Enhancing capsule: Present. Growth: Not applicable. Tumor in vein: No. Ancillary features: Restricted diffusion. LI-RADS: 5: Gallbladder: Cholelithiasis without wall thickening or adjacent fat stranding to suggest acute cholecystitis. Biliary ducts: No biliary dilation. Pancreas: Pancreatic head cystic lesion measuring 2.0 x 1.1 centimeter, with close association to the pancreatic duct. No so seated nodularity. No ductal dilation. Spleen: Size is within normal limits. Adrenal Glands: No adrenal nodules. Kidneys and Ureters: No hydronephrosis. No solid mass. No complex renal cystic lesion which requires follow up. Stomach and Bowel: Normal colonic caliber, without significant wall thickening. Peritoneum: No abnormal intraperitoneal fluid. No free air. Ventral Wall: No hernia. Abdominal Nodes: Prominent portacaval node measuring 1.4 x 2.0 centimeter, nonspecific. Vessels: Aorta and inferior vena cava are normal in size. Bones: No aggressive osseous abnormality. IMPRESSION: LI-RADS 5 mass in segment 6 of the liver. Recommend oncology referral. 2.0 x 1.6 centimeter T2 hyperintense cystic lesion in the pancreatic head, with connection to the pancreatic duct. Recommend yearly surveillance for a total of 5 years, per consensus guidelines. Cholelithiasis without wall thickening or adjacent fat stranding to suggest acute cholecystitis. Dictated by: Vito Keene M.D. on 05/27/2024 at 13:39 Approved by: Vito Keene M.D. on 05/27/2024 at 13:57
== END ==
PROVIDERS: PCP Family Medicine; Referring Provider Family Medicine; Visit Provider Family Medicine
DX: K76.89 Other specified diseases of liver (principal); K86.9 Disease of pancreas, unspecified; K80.20 Calculus of gallbladder without cholecystitis without obstruction; R93.5 Abnormal findings on diagnostic imaging of other abdominal regions, including retroperitoneum; R16.0 Hepatomegaly, not elsewhere classified
CPT/HCPCS: 74183; A9579

== ENCOUNTER → 2025-01-19 10:28 | Outpatient (CLI) | payer OTHER, SELFPAY ==
[2025-01-19 11:55] LABS: Prostate Specific Antigen 6.71 ng/mL (0.10-4.00)
== END ==
PROVIDERS: PCP Family Medicine; Referring Provider Family Medicine; Visit Provider Family Medicine
DX: N40.0 Benign prostatic hyperplasia without lower urinary tract symptoms (principal); R97.20 Elevated prostate specific antigen [PSA]
CPT/HCPCS: 36415; 84153